=== PATIENT | female | born 1995 | race Caucasian/White ===

== ENCOUNTER 2016-10-27 00:55 | Emergency (ER) | payer MEDICAID, OTHER ==
[~2016-10-27] VITALS: Ht 170.2 cm; Wt 67.6 kg
[2016-10-27] MEDS ORDERED: LIDOCAINE 1%, 20ML ONE (01:19)
[2016-10-27] MEDS ORDERED: LIDOCAINE 2%, 20ML INFIL ONE (01:30)
[2016-10-27 03:12] VITALS: BP 119/62
== END 2016-10-27 03:15 | disposition home or self-care (01) ==
LOC: ED 02:21
DX: S06.0X9A Concussion with loss of consciousness of unspecified duration, initial encounter (principal); S01.81XA Laceration without foreign body of other part of head, initial encounter; L08.9 Local infection of the skin and subcutaneous tissue, unspecified; W01.0XXA Fall on same level from slipping, tripping and stumbling without subsequent striking against object, initial encounter; Y93.89 Activity, other specified; Y99.8 Other external cause status; Y92.218 Other school as the place of occurrence of the external cause
CPT/HCPCS: 12013; 70450; 99284